=== PATIENT | male | born 1960 | race American Indian/Alaskan Native ===

== ENCOUNTER 2017-07-21 09:55 | Emergency (ER) | payer MEDICAID ==
[2017-07-21 10:04] VITALS: BP 140/101
[2017-07-21] MEDS ORDERED: NORVASC PO ONE ×2 (12:36→12:37)
[2017-07-21] MEDS ORDERED: CLARITIN PO ONE (12:37)
--- NOTE | 2017-07-21 12:39 | Emergency Department Report ---
HPI - General Chief Complaint: Back Pain/Injury Time Seen by Provider: 07/21/17 12:26 - HPI HPI: BACK PAIN SINCE 2010 ED Past Medical Hx - Past Medical History Previous Medical History?: Yes Hx Hypertension: Yes Additional medical history: back pain - Surgical History Past Surgical History?: No - Social History Smoking Status: Current Every Day Smoker Substance Use Type: Non Opiate Pain - Medications Home Medications: Home Medications Medication Instructions Recorded Confirmed Last Taken Type Hydrocodone Bit/Acetaminophen 1 tab PO Q6H PRN 03/12/13 03/12/13 Unknown History [Hydrocodon-Acetaminoph 7.5-650 mg] Hydrocodone Bit/Acetaminophen 1 each PO Q6H PRN #12 tablet 03/12/13 Unknown Rx [Lortab 7.5-500 Tablet] Cyclobenzaprine [Flexeril 10 MG 10 mg PO TID PRN #12 tablet 07/21/17 Unknown Rx TAB] Lisinopril/Hydrochlorothiazide 1 tab PO QDAY #30 tablet 07/21/17 Unknown Rx [Zestoretic 10-12.5 mg] ED Review of Systems ROS: Stated complaint: LOWER BACK PAIN Other details as noted in HPI Comment: All other systems reviewed and negative ENT: throat pain, congestion Physical Exam - Physical Exam Vital Signs: Vital Signs 07/21/17 10:01 Temperature 97.9 F Pulse Rate 75 Respiratory 18 Rate Blood Pressure 140/101 O2 Sat by Pulse 98 Oximetry ED Course Vital Signs 07/21/17 10:01 Temperature 97.9 F Pulse Rate 75 Respiratory 18 Rate Blood Pressure 140/101 O2 Sat by Pulse 98 Oximetry Critical care attestation.: If time is entered above; I have spent that time in minutes in the direct care of this critically ill patient, excluding procedure time. ED Disposition Clinical Impression: Low back strain Hypertension Qualifiers: Hypertension type: essential hypertension Qualified Code(s): I10 - Essential ( primary) hypertension Clinical Impression: (Ruled Out): Upper respiratory infection, viral Disposition: - TO HOME OR SELFCARE Is pt being admited?: No Does the pt Need Aspirin: No Condition: Stable Instructions: Hypertension (ED) Prescriptions: Cyclobenzaprine [Flexeril 10 MG TAB] 10 mg PO TID PRN #12 tablet PRN Reason: Muscle Spasm Lisinopril/Hydrochlorothiazide [Zestoretic 10-12.5 mg] 1 tab PO QDAY #30 tablet Referrals: PRIMARY CARE, [Primary Care Provider] - 3-5 Days
== END 2017-07-21 13:18 | disposition home or self-care (01) ==
LOC: ED 09:55
DX: S39.012A Strain of muscle, fascia and tendon of lower back, initial encounter (principal); I10 Essential (primary) hypertension; F17.200 Nicotine dependence, unspecified, uncomplicated; X58.XXXA Exposure to other specified factors, initial encounter; Y93.89 Activity, other specified; Y92.89 Other specified places as the place of occurrence of the external cause; Y99.8 Other external cause status
CPT/HCPCS: 99282

== ENCOUNTER 2018-02-26 08:48 | Emergency (ER) | payer OTHER, MEDICAID ==
[2018-02-26] MEDS ORDERED: ULTRAM PO ONE (09:31)
[2018-02-26] MEDS ORDERED: FLEXERIL PO ONE (09:31)
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
--- NOTE | 2018-02-26 10:53 | XRay Report ---
FINAL REPORT EXAM: XR SPINE CERVICAL 2-3V HISTORY: PAIN COMPARISON: None. TECHNIQUE: Three views of the cervical spine FINDINGS: There is no acute fracture or dislocation. The vertebral body heights are maintained. There is mild diffuse intervertebral disc space narrowing, most prominent at C5-C6, C6-C7, and C7-T1 with anterior and uncovertebral osteophyte formation. The posterior elements are intact. The paravertebral soft tissues are normal. IMPRESSION: Degenerative changes of the cervical spine without acute fracture or dislocation.
--- NOTE | 2018-02-26 10:54 | XRay Report ---
FINAL REPORT EXAM: XR SPINE THORACOLUMBAR 2V HISTORY: PAIN COMPARISON: None. TECHNIQUE: Two views of the thoracolumbar junction FINDINGS: There is normal alignment without acute fracture or dislocation. The vertebral body heights are maintained. There is mild diffuse intervertebral disc space narrowing. The paravertebral soft tissues are normal. IMPRESSION: Mild degenerative changes of the thoracolumbar junction without acute fracture or dislocation.
[2018-02-26 11:05] VITALS: BP 152/72
== END 2018-02-26 11:03 | disposition home or self-care (01) ==
LOC: ED 08:48
DX: S16.1XXA Strain of muscle, fascia and tendon at neck level, initial encounter (principal); M54.5 Low back pain; I10 Essential (primary) hypertension; F17.200 Nicotine dependence, unspecified, uncomplicated; V49.9XXA Car occupant (driver) (passenger) injured in unspecified traffic accident, initial encounter; Y93.89 Activity, other specified; Y99.8 Other external cause status; Y92.410 Unspecified street and highway as the place of occurrence of the external cause
CPT/HCPCS: 72040; 72080; 99283

== ENCOUNTER 2018-11-16 18:18 | Emergency (ER) | payer MEDICAID, OTHER ==
--- NOTE | 2018-11-16 18:33 | Emergency Department Report ---
Blank Doc - Documentation Documentation: This is a 58-year-old male that presents with abdominal pain, body aches, chil ls, subjective fever, with n/v. This initial assessment/diagnostic orders/clinical plan/treatment(s) is/are subject to change based on patient's health status, clinical progression and re- assessment by fellow clinical providers in the ED. Further treatment and workup at subsequent clinical providers discretion. Patient/guardians urged not to elope from the ED as their condition may be serious if not clinically assessed and managed. Initial orders include: 1- Patient sent to [facility] for further evaluation and treatment 2- labs 3- UA
[2018-11-16 19:17] LABS: Basophils # (Auto) 0.1 K/mm3 (0.0-0.1); Eosinophils % (Auto) 0.3 % (0.0-4.3); Hemoglobin 15.6 gm/dl (11.8-15.2); Lymphocytes # (Auto) 3.6 K/mm3 (1.2-5.4); Lymphocytes % (Auto) 30.1 % (13.4-35.0); Mean Corpuscular HGB Conc 33 % (32-34); Mean Corpuscular Volume 95 fl (84-94); Monocytes # (Auto) 0.9 K/mm3 (0.0-0.8); Monocytes % (Auto) 7.8 % (0.0-7.3); Platelet Count 264 K/mm3 (140-440); Red Blood Count 4.96 M/mm3 (3.65-5.03); Red Cell Distribution Width 13.6 % (13.2-15.2)
[2018-11-16 19:40] LABS: Alanine Aminotransferase 15 units/L (7-56); Albumin 4.2 g/dL (3.9-5); BUN/Creatinine Ratio 11; Blood Urea Nitrogen 11 mg/dL (9-20); Calcium 9.7 mg/dL (8.4-10.2); Hemolysis Index 21
[2018-11-16 20:24] VITALS: BP 135/80
[2018-11-16] MEDS ORDERED: IBUPROFEN PO STA (21:39)
[2018-11-16] MEDS ORDERED: ZOFRAN ODT PO STA (21:39)
--- NOTE | 2018-11-16 22:26 | XRay Report ---
PROCEDURE: XR CHEST ROUTINE 2V TECHNIQUE: PA and lateral chest radiographs were obtained. HISTORY: cough COMPARISONS: None. FINDINGS: Heart: Normal. Mediastinum/Vessels: Normal. Lungs/Pleural space: Normal. Bony thorax: No acute osseous abnormality. IMPRESSION: No acute cardiopulmonary process seen.. This document is electronically signed by Felecia Louie MD., November 16 2018 10:24:39 PM ET
--- NOTE | 2018-11-16 23:30 | Emergency Department Report ---
- General Chief Complaint: Fever Stated Complaint: FEVER/BODY PAIN Time Seen by Provider: 11/16/18 18:31 Source: patient Mode of arrival: Ambulatory Limitations: No Limitations - History of Present Illness MD Complaint: fever, cough, rhinorrhea, nasal congestion, other (coryza and my algia) -: days(s) (3) Severity: mild Quality: dull Consistency: constant Improves With: nothing Worsens With: nothing Associated Symptoms: nausea, vomiting. denies: diarrhea, dysuria, rash, confusion, epistaxis - Related Data Previous Rx's Medication Instructions Recorded Last Taken Type Cyclobenzaprine [Flexeril] 10 mg PO TID PRN #10 tablet 02/26/18 Unknown Rx Lisinopril/Hydrochlorothiazide 1 tab PO QDAY #30 tablet 02/26/18 Unknown Rx [Zestoretic 10-12.5 mg] Naproxen Sodium [Aleve TAB] 220 mg PO Q8H PRN #12 tablet 02/26/18 Unknown Rx Ketorolac [Toradol] 10 mg PO Q6H PRN #15 tablet 11/16/18 Unknown Rx Ondansetron [Zofran ODT TAB] 8 mg PO Q12HR #14 tab.rapdis 11/16/18 Unknown Rx Allergies Allergy/AdvReac Type Severity Reaction Status Date / Time No Known Allergies Allergy Verified 11/16/18 18:19 ED Review of Systems ROS: Stated complaint: FEVER/BODY PAIN Other details as noted in HPI Constitutional: denies: chills, fever Eyes: denies: eye pain, eye discharge, vision change ENT: denies: ear pain, throat pain Respiratory: denies: cough, shortness of breath, wheezing Cardiovascular: denies: chest pain, palpitations Endocrine: no symptoms reported Gastrointestinal: denies: abdominal pain, nausea, diarrhea Genitourinary: denies: urgency, dysuria Musculoskeletal: denies: back pain, joint swelling, arthralgia Skin: denies: rash, lesions Neurological: denies: headache, weakness, paresthesias Psychiatric: denies: anxiety, depression Hematological/Lymphatic: denies: easy bleeding, easy bruising ED Past Medical Hx - Past Medical History Hx Hypertension: Yes Hx CVA: No Additional medical history: back pain - Surgical History Past Surgical History?: No - Social History Smoking Status: Current Every Day Smoker Substance Use Type: None - Medications Home Medications: Home Medications Medication Instructions Recorded Confirmed Last Taken Type Cyclobenzaprine [Flexeril] 10 mg PO TID PRN #10 tablet 02/26/18 Unknown Rx Lisinopril/Hydrochlorothiazide 1 tab PO QDAY #30 tablet 02/26/18 Unknown Rx [Zestoretic 10-12.5 mg] Naproxen Sodium [Aleve TAB] 220 mg PO Q8H PRN #12 tablet 02/26/18 Unknown Rx Ketorolac [Toradol] 10 mg PO Q6H PRN #15 tablet 11/16/18 Unknown Rx Ondansetron [Zofran ODT TAB] 8 mg PO Q12HR #14 tab.rapdis 11/16/18 Unknown Rx ED Physical Exam - General Limitations: No Limitations General appearance: alert, other (ill but nontoxic) - Head Head exam: Present: atraumatic, normocephalic - Eye Eye exam: Present: normal appearance, PERRL, EOMI Pupils: Present: normal accommodation - ENT ENT exam: Present: normal exam, mucous membranes moist, other (nasal congestion bilaterally. Clear nasal discharge) - Neck Neck exam: Present: normal inspection, full ROM - Respiratory Respiratory exam: Present: normal lung sounds bilaterally, rhonchi. Absent: respiratory distress - Cardiovascular Cardiovascular Exam: Present: regular rate, normal rhythm. Absent: systolic murmur, diastolic murmur, rubs, gallop - GI/Abdominal GI/Abdominal exam: Present: soft, normal bowel sounds - Rectal Rectal exam: Present: deferred - Extremities Exam Extremities exam: Present: normal inspection - Back Exam Back exam: Present: normal inspection - Neurological Exam Neurological exam: Present: alert, oriented X3 - Psychiatric Psychiatric exam: Present: normal affect, normal mood - Skin Skin exam: Present: warm, dry, intact, normal color. Absent: rash ED Course Vital Signs 11/16/18 11/16/18 18:32 20:23 Temperature 98.3 F 99.1 F Pulse Rate 90 63 Respiratory 20 20 Rate Blood Pressure 148/108 Blood Pressure 135/80 [Right] O2 Sat by Pulse 99 99 Oximetry ED Medical Decision Making - Lab Data Result diagrams: 11/16/18 18:37 11/16/18 18:37 - Medical Decision Making 58-year-old [place] male, nasal congestion, cough/no chest pain or abdominal pain. Mildly elevated white count. No dysuria, sudden onset of symptoms appears to be more viral in nature. Chest x-ray is normal. Treat his symptoms and have her reevaluated in 24-48 hours. He is tolerating by mouth with no complications Critical care attestation.: If time is entered above; I have spent that time in minutes in the direct care of this critically ill patient, excluding procedure time. ED Disposition Clinical Impression: Viral syndrome Disposition: DC- TO HOME OR SELFCARE Is pt being admited?: No Does the pt Need Aspirin: No Condition: Stable Instructions: Viral Syndrome (ED) Referrals: PRIMARY CARE [Primary Care Provider] - 3-5 Days [facility] [Provider Group] - 3-5 Days
[2018-11-16 23:53] LABS: Amorphous Crystals,Urine Few; Bilirubin,Urine SM (Negative); Blood,Urine NEG (Negative); Color,Urine Amber (Yellow); Mucus,Urine 2+ /HPF
[2018-11-17 02:19] LABS: Ictotest,Urine Negative (Negative)
== END 2018-11-16 23:45 | disposition home or self-care (01) ==
LOC: ED 18:18
DX: B34.9 Viral infection, unspecified (principal); R09.81 Nasal congestion; M79.10 Myalgia, unspecified site; I10 Essential (primary) hypertension; Z79.899 Other long term (current) drug therapy; F17.200 Nicotine dependence, unspecified, uncomplicated
CPT/HCPCS: 36415; 71046; 80053; 81001; 83690; 85025; 99284; Q0162

== ENCOUNTER 2018-11-17 15:03 | Emergency (ER) | payer MEDICAID ==
[2018-11-17 16:24] LABS: Basophils # (Auto) 0.2 K/mm3 (0.0-0.1); Basophils % (Auto) 1.6 % (0.0-1.8); Eosinophils % (Auto) 0.3 % (0.0-4.3); Hematocrit 46.1 % (35.5-45.6); Hemoglobin 15.8 gm/dl (11.8-15.2); Lymphocytes # (Auto) 3.2 K/mm3 (1.2-5.4); Lymphocytes % (Auto) 26.2 % (13.4-35.0); Mean Corpuscular HGB Conc 34 % (32-34); Mean Corpuscular Volume 95 fl (84-94); Monocytes % (Auto) 8.3 % (0.0-7.3); Platelet Count 274 K/mm3 (140-440); Red Blood Count 4.84 M/mm3 (3.65-5.03); Red Cell Distribution Width 13.8 % (13.2-15.2)
[2018-11-17 17:03] LABS: Alanine Aminotransferase 15 units/L (7-56); Albumin 4.1 g/dL (3.9-5); BUN/Creatinine Ratio 8; Blood Urea Nitrogen 10 mg/dL (9-20); Calcium 9.2 mg/dL (8.4-10.2); Hemolysis Index 30
[2018-11-17] MEDS ORDERED: NACL 0.9% 1000 ML 1,000 ML IV ONE (18:26)
--- NOTE | 2018-11-17 19:48 | Emergency Department Report ---
ED General Adult HPI - General Chief complaint: Nausea/Vomiting/Diarrhea Stated complaint: V/N Time Seen by Provider: 11/17/18 15:44 Source: patient Mode of arrival: Ambulatory Limitations: No Limitations - History of Present Illness Initial comments: 58-year-old male with a history of hypertension and herniated disks presents with a complaint of nausea and vomiting for over a week. Patient states that he was seen yesterday and was prescribed) didn't appear patient states he has continued to have epigastric discomfort and feels as if he cannot eat. Patient denies any fever. Patient denies any hematemesis or hematochezia. Patient states currently his abdominal pain has resolved. Severity scale (0 -10): 1 - Related Data Previous Rx's Medication Instructions Recorded Last Taken Type Cyclobenzaprine [Flexeril] 10 mg PO TID PRN #10 tablet 02/26/18 Unknown Rx Lisinopril/Hydrochlorothiazide 1 tab PO QDAY #30 tablet 02/26/18 Unknown Rx [Zestoretic 10-12.5 mg] Naproxen Sodium [Aleve TAB] 220 mg PO Q8H PRN #12 tablet 02/26/18 Unknown Rx Ketorolac [Toradol] 10 mg PO Q6H PRN #15 tablet 11/16/18 Unknown Rx Ondansetron [Zofran ODT TAB] 8 mg PO Q12HR #14 tab.rapdis 11/16/18 Unknown Rx Famotidine [Pepcid] 20 mg PO BID #60 tablet 11/17/18 Unknown Rx Allergies Allergy/AdvReac Type Severity Reaction Status Date / Time No Known Allergies Allergy Verified 11/17/18 15:44 ED Review of Systems ROS: Stated complaint: V/N Other details as noted in HPI Constitutional: denies: chills, fever Eyes: denies: eye pain, eye discharge, vision change ENT: denies: ear pain, throat pain Respiratory: denies: cough, shortness of breath, wheezing Cardiovascular: denies: chest pain, palpitations Endocrine: no symptoms reported Gastrointestinal: nausea, vomiting. denies: abdominal pain, diarrhea Genitourinary: denies: urgency, dysuria Musculoskeletal: denies: back pain, joint swelling, arthralgia Skin: denies: rash, lesions Neurological: denies: headache, weakness, paresthesias Psychiatric: denies: anxiety, depression Hematological/Lymphatic: denies: easy bleeding, easy bruising ED Past Medical Hx - Past Medical History Hx Hypertension: Yes Hx CVA: No Additional medical history: back pain - Social History Smoking Status: Current Every Day Smoker - Medications Home Medications: Home Medications Medication Instructions Recorded Confirmed Last Taken Type Cyclobenzaprine [Flexeril] 10 mg PO TID PRN #10 tablet 02/26/18 Unknown Rx Lisinopril/Hydrochlorothiazide 1 tab PO QDAY #30 tablet 02/26/18 Unknown Rx [Zestoretic 10-12.5 mg] Naproxen Sodium [Aleve TAB] 220 mg PO Q8H PRN #12 tablet 02/26/18 Unknown Rx Ketorolac [Toradol] 10 mg PO Q6H PRN #15 tablet 11/16/18 Unknown Rx Ondansetron [Zofran ODT TAB] 8 mg PO Q12HR #14 tab.rapdis 11/16/18 Unknown Rx Famotidine [Pepcid] 20 mg PO BID #60 tablet 11/17/18 Unknown Rx ED Physical Exam - General Limitations: No Limitations General appearance: alert, in no apparent distress, other (comfortable) - Head Head exam: Present: atraumatic, normocephalic - Eye Eye exam: Present: normal appearance - ENT ENT exam: Present: mucous membranes moist - Neck Neck exam: Present: normal inspection - Respiratory Respiratory exam: Present: normal lung sounds bilaterally. Absent: respiratory distress - Cardiovascular Cardiovascular Exam: Present: regular rate, normal rhythm. Absent: systolic murmur, diastolic murmur, rubs, gallop - GI/Abdominal GI/Abdominal exam: Present: soft, normal bowel sounds. Absent: distended, tenderness - Rectal Rectal exam: Present: deferred - Extremities Exam Extremities exam: Present: normal inspection - Back Exam Back exam: Present: normal inspection - Neurological Exam Neurological exam: Present: alert, oriented X3 - Psychiatric Psychiatric exam: Present: normal affect, normal mood - Skin Skin exam: Present: warm, dry, intact, normal color. Absent: rash ED Course Vital Signs 11/17/18 11/17/18 11/17/18 15:44 15:47 18:50 Temperature 99.8 F H Pulse Rate 76 52 L Respiratory 18 19 Rate Blood Pressure Blood Pressure 141/114 [Left] O2 Sat by Pulse 99 Oximetry 11/17/18 11/17/18 11/17/18 18:57 19:01 19:15 Temperature 98.5 F Pulse Rate 61 71 73 Respiratory 18 20 18 Rate Blood Pressure 134/74 134/74 Blood Pressure 138/82 [Left] O2 Sat by Pulse 100 Oximetry 11/17/18 11/17/18 11/17/18 19:25 19:31 19:45 Temperature Pulse Rate 77 72 Respiratory 18 20 21 Rate Blood Pressure 134/74 134/74 Blood Pressure [Left] O2 Sat by Pulse Oximetry 11/17/18 11/17/18 11/17/18 20:00 20:15 20:31 Temperature Pulse Rate 73 84 59 L Respiratory 18 21 13 Rate Blood Pressure 150/105 150/105 150/105 Blood Pressure [Left] O2 Sat by Pulse Oximetry 11/17/18 11/17/18 11/17/18 20:45 21:01 21:15 Temperature Pulse Rate 66 78 65 Respiratory 13 14 11 L Rate Blood Pressure 150/105 150/105 150/105 Blood Pressure [Left] O2 Sat by Pulse Oximetry 11/17/18 21:31 Temperature Pulse Rate 69 Respiratory 21 Rate Blood Pressure 150/105 Blood Pressure [Left] O2 Sat by Pulse Oximetry ED Medical Decision Making - Lab Data Result diagrams: 11/17/18 16:08 11/17/18 16:08 - Medical Decision Making Patient received GI cocktail states that he feels improved. Patient be discharged to follow up with PCP as an outpatient. - Differential Diagnosis Gastritis; Pancreatitis; electrolyte abnormality; anemia Critical care attestation.: If time is entered above; I have spent that time in minutes in the direct care of this critically ill patient, excluding procedure time. ED Disposition Clinical Impression: Gastritis and duodenitis Disposition: - TO HOME OR SELFCARE Is pt being admited?: No Does the pt Need Aspirin: No Condition: Stable Instructions: Gastritis (ED) Prescriptions: Famotidine [Pepcid] 20 mg PO BID #60 tablet Referrals: ANABEL OVALLE MD [Primary Care Provider] - 3-5 Days Time of Disposition: 22:00 Print Language: INDIAN
[2018-11-17] MEDS ORDERED: ALUM-MAG HYDROX-SIMETH 200-200-20MG/5ML PO ONE (20:21)
[2018-11-17] MEDS ORDERED: LIDOCAINE VISCOUS 2% PO ONE (20:21)
[2018-11-17 21:41] VITALS: BP 150/105
== END 2018-11-17 22:10 | disposition home or self-care (01) ==
LOC: ED 15:03
DX: K29.70 Gastritis, unspecified, without bleeding (principal); K29.80 Duodenitis without bleeding; I10 Essential (primary) hypertension; F17.200 Nicotine dependence, unspecified, uncomplicated
CPT/HCPCS: 36415; 80053; 83690; 85025; 96360; 99283; J7030

== ENCOUNTER 2019-02-13 11:22 | Emergency (ER) | payer MEDICAID ==
--- NOTE | 2019-02-13 11:41 | Event Note ---
ED Screening Note ED Screening Note: pt presents with N/V/D that began three days ago right sided CP and right sided upper abd pain +chills PMHx HTN no allergies to meds rarely drinks non smoker no drug use This initial assessment/diagnostic orders/clinical plan/treatment(s) is/are subject to change based on patients health status, clinical progression and re- assessment by fellow clinical providers in the ED. Further treatment and workup at subsequent clinical providers discretion. Patient/guardian urged not to elope from the ED as their condition may be serious if not clinically assessed and managed. Initial orders include: CP protocol, abd protocol
[2019-02-13] MEDS ORDERED: ZOFRAN ODT PO ONE (11:42)
[2019-02-13] MEDS ORDERED: ZOFRAN ODT ONE (11:45)
[2019-02-13 12:01] LABS: Basophils # (Auto) 0.1 K/mm3 (0.0-0.1); Basophils % (Auto) 1.1 % (0.0-1.8); Eosinophils % (Auto) 0.4 % (0.0-4.3); Hematocrit 49.1 % (35.5-45.6); Hemoglobin 16.8 gm/dl (11.8-15.2); Lymphocytes # (Auto) 3.6 K/mm3 (1.2-5.4); Lymphocytes % (Auto) 29.5 % (13.4-35.0); Mean Corpuscular HGB Conc 34 % (32-34); Mean Corpuscular Volume 93 fl (84-94); Monocytes # (Auto) 1.1 K/mm3 (0.0-0.8); Platelet Count 283 K/mm3 (140-440); Red Blood Count 5.26 M/mm3 (3.65-5.03); Red Cell Distribution Width 14.2 % (13.2-15.2)
--- NOTE | 2019-02-13 12:16 | XRay Report ---
CHEST 2 VIEWS INDICATION: Right-sided chest pain for 3 days. COMPARISON: FINDINGS: Support devices: None. Heart: Within normal limits. Lungs/pleura: The lungs appear mildly hyperinflated, correlate for history of smoking. No evidence fo r infiltrate or pleural fluid. No pneumothorax. Additional findings: Scoliosis IMPRESSION: Mild hyperinflation. No acute process. Signer Name: Jean Nichols Jr, MD Signed: 02/13/2019 12:12 PM Workstation Name: [id number]
[2019-02-13 12:27] LABS: Alanine Aminotransferase 10 units/L (7-56); Albumin 4.4 g/dL (3.9-5); BUN/Creatinine Ratio 14; Blood Urea Nitrogen 15 mg/dL (9-20); Calcium 9.6 mg/dL (8.4-10.2); Hemolysis Index 21
[2019-02-13 14:47] VITALS: BP 147/108
== END 2019-02-13 19:00 | disposition left against medical advice (07) ==
LOC: ED 11:22
DX: R11.10 Vomiting, unspecified (principal); Z53.21 Procedure and treatment not carried out due to patient leaving prior to being seen by health care provider
CPT/HCPCS: 36415; 71046; 80053; 83690; 84484; 85025; 93005; 93010; Q0162

== ENCOUNTER 2019-02-14 08:52 | Emergency (ER) | payer MEDICAID ==
[2019-02-14] MEDS ORDERED: ZOFRAN IV ONE (10:47)
[2019-02-14] MEDS ORDERED: PEPCID IV ONE (10:47)
[2019-02-14] MEDS ORDERED: BENTYL IM ONE (10:48)
[2019-02-14] MEDS ORDERED: NACL 0.9% 500 ML 500 ML IV ONE (10:48)
[2019-02-14] MEDS ORDERED: CARAFATE PO ONE (10:48)
[2019-02-14] MEDS ORDERED: TYLENOL PO ONE (10:48)
--- NOTE | 2019-02-14 10:50 | Emergency Department Report ---
ED General Adult HPI - General Chief complaint: Chest Pain Stated complaint: CHEST PAIN/STOMACH PAIN Time Seen by Provider: 02/14/19 10:09 Source: patient, RN notes reviewed, old records reviewed Mode of arrival: Ambulatory Limitations: No Limitations - History of Present Illness Initial comments: This is a 58-year-old gentleman. This patient is not known to this provider previously. He does not have a primary care doctor. Past medical history inc ludes tobacco consumption and possible hypertension. Patient presents to the ER today with a complaint of epigastric and right upper quadrant pain, nausea, vomiting, cough, chest wall pain with coughing, intermittent lower abdominal pain, and intermittent urinary hesitancy. Positive chills, no fever. Symptoms intermittent over the past 3 days, and getting worse. Symptoms do not really have exacerbating or relieving factors, with the exception of occasional urinating, and occasionally tending to be or drink. Patient was seen in this department yesterday, however, left because he felt the wait was too long. However, he presents again, because his symptoms are apparently getting worse. -: Gradual Location: chest, abdomen Radiation: other (lower abdominal region up to chest) Severity scale (0 -10): 0 Consistency: other Improves with: other - Related Data Previous Rx's Medication Instructions Recorded Last Taken Type Lisinopril/Hydrochlorothiazide 1 tab PO QDAY #30 tablet 02/26/18 Unknown Rx [Zestoretic 10-12.5 mg] Ondansetron [Zofran ODT TAB] 8 mg PO Q12HR #14 tab.rapdis 11/16/18 Unknown Rx Famotidine [Pepcid] 20 mg PO BID #60 tablet 11/17/18 Unknown Rx Albuterol Sulfate [Proair 90 mcg IH Q4HR PRN #2 aer.pow.ba 02/14/19 Unknown Rx Respiclick] Aspirin [Aspirin BABY CHEW TAB] 81 mg PO QDAY #30 tab.chew 02/14/19 Unknown Rx Famotidine [Pepcid] 20 mg PO BID #10 tablet 02/14/19 Unknown Rx Metoclopramide [Reglan] 10 mg PO QID PRN #30 tablet 02/14/19 Unknown Rx levoFLOXacin [Levaquin] 750 mg PO QDAY #10 tablet 02/14/19 Unknown Rx Allergies Allergy/AdvReac Type Severity Reaction Status Date / Time No Known Allergies Allergy Verified 11/17/18 15:44 ED Review of Systems ROS: Stated complaint: CHEST PAIN/STOMACH PAIN Other details as noted in HPI Constitutional: chills, malaise, weakness Eyes: denies: eye discharge ENT: denies: congestion Respiratory: cough Cardiovascular: chest pain Gastrointestinal: abdominal pain, nausea. denies: diarrhea Genitourinary: as per HPI, other. denies: urgency, dysuria, frequency, hematuria, testicular pain Musculoskeletal: denies: back pain Skin: denies: lesions Neurological: weakness ED Past Medical Hx - Past Medical History Hx Hypertension: Yes Hx CVA: No Additional medical history: back pain - Surgical History Past Surgical History?: No - Social History Smoking Status: Current Every Day Smoker - Medications Home Medications: Home Medications Medication Instructions Recorded Confirmed Last Taken Type Lisinopril/Hydrochlorothiazide 1 tab PO QDAY #30 tablet 02/26/18 Unknown Rx [Zestoretic 10-12.5 mg] Ondansetron [Zofran ODT TAB] 8 mg PO Q12HR #14 tab.rapdis 11/16/18 Unknown Rx Famotidine [Pepcid] 20 mg PO BID #60 tablet 11/17/18 Unknown Rx Albuterol Sulfate [Proair 90 mcg IH Q4HR PRN #2 aer.pow.ba 02/14/19 Unknown Rx Respiclick] Aspirin [Aspirin BABY CHEW TAB] 81 mg PO QDAY #30 tab.chew 02/14/19 Unknown Rx Famotidine [Pepcid] 20 mg PO BID #10 tablet 02/14/19 Unknown Rx Metoclopramide [Reglan] 10 mg PO QID PRN #30 tablet 02/14/19 Unknown Rx levoFLOXacin [Levaquin] 750 mg PO QDAY #10 tablet 02/14/19 Unknown Rx ED Physical Exam - General Limitations: No Limitations, Other (during history and physical, chaperoned by nurse Myrna Giron) General appearance: alert, in no apparent distress - Head Head exam: Present: atraumatic, normocephalic - Eye Eye exam: Present: normal appearance, EOMI. Absent: nystagmus - ENT ENT exam: Present: normal exam, normal orophraynx, mucous membranes moist, normal external ear exam - Neck Neck exam: Present: normal inspection, full ROM. Absent: tenderness, meningismus - Respiratory Respiratory exam: Present: decreased breath sounds. Absent: respiratory distr ess - Cardiovascular Cardiovascular Exam: Present: regular rate, normal rhythm, normal heart sounds. Absent: bradycardia, tachycardia, irregular rhythm, systolic murmur, diastolic murmur, rubs, gallop - GI/Abdominal GI/Abdominal exam: Present: soft. Absent: distended, tenderness, guarding, rebound, rigid, pulsatile mass - Rectal Rectal exam: Present: deferred - exam: Present: normal inspection, other (there is no testicular tenderness. There is normal testicular lie bilaterally. There is normal cremasteric reflex bilaterally.) External exam: Present: normal external exam, other (chaperoned by nurse Juaquin castillo) - Extremities Exam Extremities exam: Present: normal inspection, full ROM, other (2+ pulses noted in the bilateral upper, lower extremities. Compartments soft. No long bony tenderness. The pelvis is stable.). Absent: pedal edema, joint swelling, calf tenderness - Back Exam Back exam: Present: normal inspection, full ROM. Absent: tenderness, CVA tenderness (R), CVA tenderness (L), paraspinal tenderness, vertebral tenderness - Neurological Exam Neurological exam: Present: alert, other (Extraocular movements intact. Tongue midline. No facial droop. Facial sensation intact to light touch in the V1, V2, V3 distribution bilaterally. 5 and 5 strength in 4 extremities.. Sensation is intact to light touch in 4 extremities.). Absent: motor sensory deficit - Psychiatric Psychiatric exam: Present: normal mood - Skin Skin exam: Present: warm, dry, intact, normal color. Absent: rash ED Course Vital Signs 02/14/19 02/14/19 02/14/19 10:15 10:21 14:25 Temperature 99.1 F Pulse Rate 73 65 Respiratory 16 16 16 Rate Blood Pressure 154/66 145/85 [Left] O2 Sat by Pulse 97 99 96 Oximetry - Reevaluation(s) Reevaluation #1: 02/14/19 11:34 Differential diagnosis, including not limited to: Pneumonia, cholecystitis, complex urinary tract infection, pulmonary embolism, inflammatory bowel disease, intra-abdominal infection, acute coronary syndrome Assessment and plan: 58-year-old gentleman with a complaint of right upper quadrant pain, chills, abdominal pain, urinary hasn't C. Denies testicular pain, rectal pain, and he denies dyschezia, or rectal pain. Has low-grade t emperature, found to have leukocytosis today of 14,000, up from 12,000 yesterday. His physical exam is otherwise unremarkable. Recently had a chest x-ray which was unremarkable. Given low-grade temperature, worsening leukocytosis, multiple symptoms, we will obtain CT scan of the chest to evaluate for pneumonia not visualized on x-ray, and pulmonary embolism. CT scan of the abdomen and pelvis will be obtained to evaluate abdominal anatomy. We will treat his symptoms, I'm we will reassess. Of note, EKG today is abnormal but unchanged from prior. 02/14/19 16:02 Reevaluation #2: 02/14/19 16:00 Patient reassessed multiple times all here in the department. Vital signs unremarkable. No active vomiting. He is now currently sleeping comfortably and his stretcher, and in no acute distress. Troponin negative 4. CT scan of the chest negative for acute disease. CT scan of the abdomen and pelvis grossly negative, although limited somewhat by motion artifact. There was a question of possible early mild left-sided pyelonephritis. Urinalysis is reviewed and appreciated. EKG abnormal, patient will be referred to local outpatient cardiology as per protocol of this local institution. Abnormal EKG findings reviewed and appreciated, however, given overall clinical picture, do not feel that patient would benefit from admission to the hospital at this time, our local cardiology group can follow him up within the next 48 hours, and arrange close outpatient diagnostic testing. We will discharge him with pain medication, nausea medication Given his endorsement of obstructive urinary symptoms, low-grade temperature, leukocytosis, and CT scan findings, we'll initiate empiric coverage with antibiotics. 02/14/19 16:02 02/14/19 16:05 ED Medical Decision Making - Lab Data Result diagrams: 02/14/19 11:01 02/14/19 11:01 Vital Signs 02/14/19 02/14/19 10:15 10:21 Temperature 99.1 F Pulse Rate 73 Respiratory 16 16 Rate Blood Pressure 154/66 [Left] O2 Sat by Pulse 97 99 Oximetry Lab Results 02/14/19 02/14/19 02/14/19 Range/Units 11:01 11:01 11:01 WBC 14.2 H (4.5-11.0) K/mm3 RBC 5.22 H (3.65-5.03) M/mm3 Hgb 16.4 H (11.8-15.2) gm/dl Hct 49.1 H (35.5-45.6) % MCV 94 (84-94) fl MCH 31 (28-32) pg MCHC 33 (32-34) % RDW 13.9 (13.2-15.2) % Plt Count 271 (140-440) K/mm3 PT 14.3 (12.2-14.9) Sec. INR 1.14 H (0.87-1.13) D-Dimer 199.55 (0-234) ng/mlDDU Magnesium 2.10 (1.7-2.3) mg/dL Lipase 11 L (13-60) units/L - EKG Data -: EKG Interpreted by Ne EKG shows normal: sinus rhythm Rate: normal - EKG Data 02/14/19 11:37 EKG #1 shows a sinus rhythm, 74 bpm, normal axis, QTC is prolonged, poor R progression, atrial enlargement, left ventricular hypertrophy, T-wave inversions V4, V5 and V6, EKG is abnormal, the EKG is not consistent with ST elevation myocardial infarction. EKG #2 shows a bradycardic rhythm, 59 bpm, normal axis, QTC within normal limits, biphasic/new T-wave inversions V2, V3, EKG is abnormal, EKG appears to be different from prior EKG. - Radiology Data Radiology results: pending, report reviewed, image reviewed Referring Physician: JOAQUIN RAMIREZ Patient Name: LAINE VELAZQUEZ Date of : 1960 Sex: Male Report Date: 2019-02-14 Report Status: Finalized [facility] [address] [place] [address] Cat Scan Report Signed Patient: LAINE VELAZQUEZ MR#: [id number] : 1960 Acct:[id number] Age/Sex: 58 / M ADM Date: 02/14/19 Loc: ED Attending Dr: Ordering Physician: JOAQUIN RAMIREZ MD Date of Service: 02/14/19 Procedure(s): CT angio chest Accession Number(s): [id number] cc: JOAQUIN RAMIREZ MD CTA CHEST WITH CONTRAST INDICATION : Chest pain, cough, fever, SIRS. TECHNIQUE: Axial imaging performed through the chest, with contrast bolus timing set to maximize opacification of the pulmonary arteries. Sagittal and coronal reformatted images. 3-plane MIP reformatted images were obtained. All CT scans at this location are performed using CT dose reduction for ALARA by means of automated exposure control. 100 mL of intravenous contrast administered. COMPARISON: Chest x-ray 02/13/2019 FINDINGS: The images are slightly limited by breathing motion artifact. Bolus: Contrast bolus timing is adequate. PTE: No filling defect is present to suggest PTE. Mediastinum: Heart and great vessels appear normal. No pathologic mediastinal adenopathy. Lungs: Lungs are clear. Bones: Degenerative changes in the spine with nothing acute. Upper abdomen: Limited imaging of the upper abdomen shows nothing acute. IMPRESSION: Negative for PTE. Clear lungs. Signer Name: Jean Nichols Jr, MD Signed: 02/14/2019 1:59 PM Workstation Name: [id number] Transcribed By: TTR Dictated By: JEAN NICHOLS JR, MD Electronically Authenticated By: JEAN NICHOLS JR, MD Signed Date/Time: 02/14/19 1350 Referring Physician: JOAQUIN RAMIREZ Patient Name: LAINE VELAZQUEZ Date of : 1960 Sex: Male Report Date: 2019-02-14 Report Status: [place] [address] Cat Scan Report Signed Patient: LAINE VELAZQUEZ MR#: [id number] : 1960 Acct:[id number] Age/Sex: 58 / M ADM Date: 02/14/19 Loc: ED Attending Dr: Ordering Physician: JOAQUIN RAMIREZ MD Date of Service: 02/14/19 Procedure(s): CT abdomen pelvis w con Accession Number(s): [id number] cc: JOAQUIN RAMIREZ MD CT ABDOMEN AND PELVIS WITH CONTRAST HISTORY: Right upper quadrant abdominal pain COMPARISON: None. TECHNIQUE: Axial CT images were obtained through the abdomen and pelvis after 100 cc of Omnipaque 300 intravenously. Sagittal and coronal reformatted images. All CT scans at this location are pe rformed using CT dose reduction for ALARA by means of automated exposure control. FINDINGS: CT ABDOMEN: Liver: Normal size and density. There are several tiny cysts scattered throughout the liver. No parenchymal disease or mass. Biliary: No significant abnormality. Spleen: No significant abnormality. Unenlarged. Pancreas: No significant abnormality. Adrenals: No significant abnormality. Kidneys: Multiple bilateral renal cysts are identified. There is moderate motion artifact at the level of the knees but there is suggestion of subtle perfusion defects in the left kidney which could represent p yelonephritis. Lymphatics: No lymphadenopathy. Vasculature: No significant abnormality. Bowel/Peritoneum: No significant abnormality. No free air. No free fluid. The appendix is not confidently identified. CT PELVIS: : No significant abnormality. Osseous Structures: No significant abnormality. Additional Findings: None IMPRESSION: Slightly limited exam by motion artifact. Question early left pyelonephritis. Bilateral renal cysts. Scattered tiny liver cysts. Signer Name: Jean Nichols Jr, MD Signed: 02/14/2019 2:02 PM Workstation Name: [id number] Transcribed By: TTR Dictated By: JEAN NICHLOS JR, MD Electronically Authenticated By: JEAN NICHOLS JR, MD Signed Date/Time: 02/14/19 1402 Critical care attestation.: If time is entered above; I have spent that time in minutes in the direct care of this critically ill patient, excluding procedure time. ED Disposition Clinical Impression: Urinary hesitancy, Right sided abdominal pain, Abnormal EKG Disposition: DC-01 TO HOME OR SELFCARE Is pt being admited?: No Does the pt Need Aspirin: No Condition: Stable Additional Instructions: Recommend patient consumed 4-6 cups of water per day for the next 5-7 days. Cultures were sent today, and results will be available in the next 3-5 days. Please have primary care doctor contact medical records department to obtain culture results. Advance diet as tolerated, take the pain medication, nausea medication as needed/directed, aspirin as directed, and antibiotics as directed. Patient's EKG today was found to be abnormal, and he'll need to follow up with an outpatient lead technical architect within the next 3 days. For the patient's convenience, his contact information was transmitted to our local cardiology practice, [facility] cardiology, and they should contact the patient with a close outpatient follow-up appointment. However, recommend patient call them first thing in the morning, to follow-up on this, and confirm and arrange close outpatient follow-up. Avoid alcohol consumption, and avoid consumption of Motrin, ibuprofen, Naprosyn, Aleve, heavy spicy foods. Recommend follow-up with a primary care doctor or repeat checkup/evaluation for right-sided abdominal pain, history of nausea and vomiting within 5 days. Patient may follow up with the primary care doctor, some of which have been listed for his convenience on this before, or hematuria return to the emergency room for repeat checkup and evaluation. Please return to the emergency room right away with new, worsening or different symptoms, or symptoms not present on the initial emergency room evaluation. Do not take metformin medication for the next 2 days, if patient takes his medication. Referrals: ANABEL OVALLE MD [Primary Care Provider] - 3-5 Days [facility] [Provider Group] - 3-5 Days [facility] [Provider Group] - 3-5 Days
[2019-02-14 11:15] LABS: Hematocrit 49.1 % (35.5-45.6); Hemoglobin 16.4 gm/dl (11.8-15.2); Mean Corpuscular HGB Conc 33 % (32-34); Mean Corpuscular Volume 94 fl (84-94); Platelet Count 271 K/mm3 (140-440); Red Blood Count 5.22 M/mm3 (3.65-5.03); Red Cell Distribution Width 13.9 % (13.2-15.2)
[2019-02-14 11:23] LABS: INR 1.14 (0.87-1.13)
[2019-02-14] MEDS ORDERED: NITROSTAT SL PRN (11:36)
[2019-02-14 11:41] LABS: Alanine Aminotransferase 10 units/L (7-56); Albumin 4.2 g/dL (3.9-5); BUN/Creatinine Ratio 14; Blood Urea Nitrogen 15 mg/dL (9-20); Calcium 9.3 mg/dL (8.4-10.2); Hemolysis Index 25
[2019-02-14 13:17] LABS: Bilirubin,Urine NEG (Negative); Blood,Urine NEG (Negative); Mucus,Urine FEW /HPF
[2019-02-14 13:33] LABS: Color,Urine Yellow (Yellow)
--- NOTE | 2019-02-14 14:04 | Cat Scan Report ---
CTA CHEST WITH CONTRAST INDICATION : Chest pain, cough, fever, SIRS. TECHNIQUE: Axial imaging performed through the chest, with contrast bolus timing set to maximize opa cification of the pulmonary arteries. Sagittal and coronal reformatted images. 3-plane MIP reformatte d images were obtained. All CT scans at this location are performed using CT dose reduction for ALAR A by means of automated exposure control. 100 mL of intravenous contrast administered. COMPARISON: Chest x-ray 02/13/2019 FINDINGS: The images are slightly limited by breathing motion artifact. Bolus: Contrast bolus timing is adequate. PTE: No filling defect is present to suggest PTE. Mediastinum: Heart and great vessels appear normal. No pathologic mediastinal adenopathy. Lungs: Lungs are clear. Bones: Degenerative changes in the spine with nothing acute. Upper abdomen: Limited imaging of the upper abdomen shows nothing acute. IMPRESSION: Negative for PTE. Clear lungs. Signer Name: Jean Nichosl Jr, MD Signed: 02/14/2019 1:59 PM Workstation Name: [id number]
--- NOTE | 2019-02-14 14:06 | Cat Scan Report ---
CT ABDOMEN AND PELVIS WITH CONTRAST HISTORY: Right upper quadrant abdominal pain COMPARISON: None. TECHNIQUE: Axial CT images were obtained through the abdomen and pelvis after 100 cc of Omnipaque 300 intravenously. Sagittal and coronal reformatted images. All CT scans at this location are performed using CT dose reduction for ALARA by means of automated exposure control. FINDINGS: CT ABDOMEN: Liver: Normal size and density. There are several tiny cysts scattered throughout the liver. No paren chymal disease or mass. Biliary: No significant abnormality. Spleen: No significant abnormality. Unenlarged. Pancreas: No significant abnormality. Adrenals: No significant abnormality. Kidneys: Multiple bilateral renal cysts are identified. There is moderate motion artifact at the leve l of the knees but there is suggestion of subtle perfusion defects in the left kidney which could rep resent pyelonephritis. Lymphatics: No lymphadenopathy. Vasculature: No significant abnormality. Bowel/Peritoneum: No significant abnormality. No free air. No free fluid. The appendix is not confide ntly identified. CT PELVIS: : No significant abnormality. Osseous Structures: No significant abnormality. Additional Findings: None IMPRESSION: Slightly limited exam by motion artifact. Question early left pyelonephritis. Bilateral renal cysts. Scattered tiny liver cysts. Signer Name: Jean Nichols Jr, MD Signed: 02/14/2019 2:02 PM Workstation Name: [id number]
[2019-02-14] MEDS ORDERED: LEVAQUIN PO ONE (16:09)
[2019-02-14 17:03] VITALS: BP 163/99
== END 2019-02-14 17:20 | disposition home or self-care (01) ==
LOC: ED 08:52
DX: R39.11 Hesitancy of micturition (principal); R10.9 Unspecified abdominal pain; R94.31 Abnormal electrocardiogram [ECG] [EKG]; R11.2 Nausea with vomiting, unspecified; I10 Essential (primary) hypertension; M54.9 Dorsalgia, unspecified; F17.200 Nicotine dependence, unspecified, uncomplicated; Z79.82 Long term (current) use of aspirin; Z79.899 Other long term (current) drug therapy
CPT/HCPCS: 36415; 71275; 74177; 80053; 81001; 82550; 83690; 83735; 84484; 85027; 85379; 85610; 87086; 93005; 93010; 96361; 96372; 96374; 96375; 99285; J0500; J2405; J7040; Q9967

== ENCOUNTER 2019-05-09 16:44 | Emergency (ER) | payer MEDICAID ==
--- NOTE | 2019-05-09 17:50 | Event Note ---
ED Screening Note Date of service: 05/09/19 Time: 17:47 ED Screening Note: 58 y o male presents with abd pain with vomitting and coughing up x 3 days This initial assessment/diagnostic orders/clinical plan/treatment(s) is/are subject to change based on patients health status, clinical progression and re- assessment by fellow clinical providers in the ED. Further treatment and workup at subsequent clinical providers discretion. Patient/guardian urged not to elope from the ED as their condition may be serious if not clinically assessed and managed. Initial orders include: labs ua
[2019-05-09 18:25] LABS: Hematocrit 52.8 % (35.5-45.6); Hemoglobin 17.8 gm/dl (11.8-15.2); Mean Corpuscular HGB Conc 34 % (32-34); Mean Corpuscular Volume 93 fl (84-94); Platelet Count 232 K/mm3 (140-440); Red Blood Count 5.69 M/mm3 (3.65-5.03); Red Cell Distribution Width 13.9 % (13.2-15.2)
--- NOTE | 2019-05-09 18:38 | XRay Report ---
CHEST 2 VIEWS INDICATION / CLINICAL INFORMATION: Chest pain. COMPARISON: 02/13/2019. FINDINGS: SUPPORT DEVICES: None. HEART / MEDIASTINUM: The heart size and pulmonary vasculature are normal. There is mild aortic tortuo sity without aneurysm. LUNGS / PLEURA: No significant pulmonary or pleural abnormality. No pneumothorax. ADDITIONAL FINDINGS: No significant additional findings. IMPRESSION: No acute abnormality or significant change. Signer Name: Wale Garland MD Signed: 05/09/2019 6:33 PM Workstation Name: [id number]
[2019-05-09 18:48] LABS: Alanine Aminotransferase 22 units/L (7-56); Albumin 4.3 g/dL (3.9-5); BUN/Creatinine Ratio 14; Blood Urea Nitrogen 18 mg/dL (9-20); Calcium 9.4 mg/dL (8.4-10.2); Hemolysis Index 21
--- NOTE | 2019-05-09 20:40 | Emergency Department Report ---
- General Chief Complaint: Upper Respiratory Infection Stated Complaint: VOMITING/FEVER Time Seen by Provider: 05/09/19 20:32 Source: patient Mode of arrival: Ambulatory Limitations: No Limitations - History of Present Illness Initial Comments: Patient is 58 years old male with history of hypertension. Patient presented to the ER complaining of cough, runny nose, congestion and generalized body ache for the last 4 days. Patient also complaining of nausea vomiting. Patient de nied any chest pain or abdominal pain. No fever or chills. MD Complaint: fever, cough, rhinorrhea, nasal congestion -: days(s) (4) Severity: moderate Context: sick contacts - Related Data Previous Rx's Medication Instructions Recorded Last Taken Type Lisinopril/Hydrochlorothiazide 1 tab PO QDAY #30 tablet 02/26/18 Unknown Rx [Zestoretic 10-12.5 mg] Ondansetron [Zofran ODT TAB] 8 mg PO Q12HR #14 tab.rapdis 11/16/18 Unknown Rx Famotidine [Pepcid] 20 mg PO BID #60 tablet 11/17/18 Unknown Rx Albuterol Sulfate [Proair 90 mcg IH Q4HR PRN #2 aer.pow.ba 02/14/19 Unknown Rx Respiclick] Aspirin [Aspirin BABY CHEW TAB] 81 mg PO QDAY #30 tab.chew 02/14/19 Unknown Rx Famotidine [Pepcid] 20 mg PO BID #10 tablet 02/14/19 Unknown Rx Metoclopramide [Reglan] 10 mg PO QID PRN #30 tablet 02/14/19 Unknown Rx levoFLOXacin [Levaquin] 750 mg PO QDAY #10 tablet 02/14/19 Unknown Rx Allergies Allergy/AdvReac Type Severity Reaction Status Date / Time No Known Allergies Allergy Verified 11/17/18 15:44 ED Review of Systems ROS: Stated complaint: VOMITING/FEVER Other details as noted in HPI Comment: All other systems reviewed and negative Constitutional: denies: chills, fever Respiratory: cough. denies: orthopnea, shortness of breath, SOB with exertion, SOB at rest, wheezing Cardiovascular: denies: chest pain, palpitations Gastrointestinal: nausea, vomiting. denies: abdominal pain, diarrhea, constipation, hematemesis, melena, hematochezia Musculoskeletal: denies: back pain Neurological: denies: headache, weakness, numbness, paresthesias, confusion, abnormal gait ED Past Medical Hx - Past Medical History Previous Medical History?: Yes Hx Hypertension: Yes Hx CVA: No Additional medical history: back pain - Social History Smoking Status: Current Every Day Smoker - Medications Home Medications: Home Medications Medication Instructions Recorded Confirmed Last Taken Type Lisinopril/Hydrochlorothiazide 1 tab PO QDAY #30 tablet 02/26/18 Unknown Rx [Zestoretic 10-12.5 mg] Ondansetron [Zofran ODT TAB] 8 mg PO Q12HR #14 tab.rapdis 11/16/18 Unknown Rx Famotidine [Pepcid] 20 mg PO BID #60 tablet 11/17/18 Unknown Rx Albuterol Sulfate [Proair 90 mcg IH Q4HR PRN #2 aer.pow.ba 02/14/19 Unknown Rx Respiclick] Aspirin [Aspirin BABY CHEW TAB] 81 mg PO QDAY #30 tab.chew 02/14/19 Unknown Rx Famotidine [Pepcid] 20 mg PO BID #10 tablet 02/14/19 Unknown Rx Metoclopramide [Reglan] 10 mg PO QID PRN #30 tablet 02/14/19 Unknown Rx levoFLOXacin [Levaquin] 750 mg PO QDAY #10 tablet 02/14/19 Unknown Rx ED Physical Exam - General Limitations: No Limitations General appearance: alert, in no apparent distress - Head Head exam: Present: atraumatic, normocephalic, normal inspection - Eye Eye exam: Present: normal appearance - ENT ENT exam: Present: normal exam, normal orophraynx, mucous membranes moist - Neck Neck exam: Present: normal inspection, full ROM. Absent: tenderness, meningismus, lymphadenopathy, thyromegaly - Respiratory Respiratory exam: Present: normal lung sounds bilaterally. Absent: respiratory distress, wheezes, rales, rhonchi, stridor, chest wall tenderness, accessory muscle use, decreased breath sounds, prolonged expiratory - Cardiovascular Cardiovascular Exam: Present: regular rate, normal rhythm, normal heart sounds - GI/Abdominal GI/Abdominal exam: Present: soft, normal bowel sounds. Absent: distended, tenderness, guarding, rebound, rigid, organomegaly, mass, bruit, pulsatile mass, hernia - Extremities Exam Extremities exam: Present: normal inspection, full ROM, normal capillary refill. Absent: tenderness, pedal edema, calf tenderness - Back Exam Back exam: Present: normal inspection, full ROM. Absent: CVA tenderness (R), CVA tenderness (L), muscle spasm, paraspinal tenderness, vertebral tenderness - Neurological Exam Neurological exam: Present: alert, oriented X3, CN II-XII intact, normal gait, reflexes normal - Psychiatric Psychiatric exam: Present: normal mood - Skin Skin exam: Present: warm, intact, normal color ED Course Vital Signs 05/09/19 17:45 Temperature 98.4 F Pulse Rate 98 H Respiratory 18 Rate Blood Pressure 140/111 [Right] O2 Sat by Pulse 96 Oximetry ED Medical Decision Making - Lab Data Result diagrams: 05/09/19 18:08 05/09/19 18:08 - Radiology Data Radiology results: report reviewed - Medical Decision Making Patient is 58 years old male with history of hypertension. Patient presented to the ER complaining of cough, runny nose, congestion and generalized body ache for the last 4 days. Patient also complaining of nausea vomiting. Patient denied any chest pain or abdominal pain. No fever or chills. Patient received Zofran 4 mg IM. No vomiting observed. Labs reviewed and is unremarkable. Chest x-ray is unremarkable. Patient given prescription for Zofran and Robitussin advised to follow-up with his primary care physician in the next 2-3 days and to return to the ER if symptoms have not improved. Critical care attestation.: If time is entered above; I have spent that time in minutes in the direct care of this critically ill patient, excluding procedure time. ED Disposition Clinical Impression: Viral syndrome, Cough Disposition: DC-01 TO HOME OR SELFCARE Is pt being admited?: No Condition: Stable Instructions: Viral Syndrome (ED) Referrals: PRIMARY CARE, [Primary Care Provider] - 3-5 Days
[2019-05-09] MEDS ORDERED: ONDANSETRON 4 MG/2 ML INJ IM ONE (20:41)
[2019-05-09 20:57] VITALS: BP 134/100
[2019-05-09 20:57] LABS: Basophils % (Manual) 0 % (0.0-1.8); Eosinophils % (Manual) 0 % (0.0-4.3); Platelet Estimate Consistent w Auto; RBC Morphology Normal; Total Cells Counted 100
== END 2019-05-09 21:11 | disposition home or self-care (01) ==
LOC: ED 16:44
DX: B34.9 Viral infection, unspecified (principal); I10 Essential (primary) hypertension; F17.200 Nicotine dependence, unspecified, uncomplicated; Z79.899 Other long term (current) drug therapy
CPT/HCPCS: 36415; 71046; 80053; 83690; 85007; 85025; 96372; 99283; J2405

== ENCOUNTER 2020-08-24 05:53 | Emergency (ER) | payer MEDICAID | END 2020-08-24 06:05 | disposition left against medical advice (07) | LOC: ED 05:53 ==

== ENCOUNTER 2022-02-24 09:48 | Emergency (ER) | payer MEDICAID ==
[2022-02-24 10:05] VITALS: BP 138/108
--- NOTE | 2022-02-24 15:45 | Emergency Department Report ---
- General Chief complaint: Extremity Injury, Lower Stated complaint: INGROWN TOENAIL Time Seen by Provider: 02/24/22 15:37 Source: patient Mode of arrival: Ambulatory Limitations: No Limitations - History of Present Illness Initial comments: 61 yo comes to ER with ingrown toe nails on left foot. no s/s infection ambulatory wo difficulty Tetanus Up to Date: yes Treatments Prior to Arrival: none - Related Data Previous Rx's Medication Instructions Recorded Last Taken Type Lisinopril/Hydrochlorothiazide 1 tab PO QDAY #30 tablet 02/26/18 Unknown Rx [Zestoretic 10-12.5 mg] Ondansetron [Zofran ODT TAB] 8 mg PO Q12HR #14 tab.rapdis 11/16/18 Unknown Rx Famotidine [Pepcid] 20 mg PO BID #60 tablet 11/17/18 Unknown Rx Albuterol Sulfate [Proair 90 mcg IH Q4HR PRN #2 aer.pow.ba 02/14/19 Unknown Rx Respiclick] Aspirin [Aspirin BABY CHEW TAB] 81 mg PO QDAY #30 tab.chew 02/14/19 Unknown Rx Famotidine [Pepcid] 20 mg PO BID #10 tablet 02/14/19 Unknown Rx Metoclopramide [Reglan] 10 mg PO QID PRN #30 tablet 02/14/19 Unknown Rx levoFLOXacin [Levaquin] 750 mg PO QDAY #10 tablet 02/14/19 Unknown Rx Ondansetron [Zofran Odt] 4 mg PO Q8HR PRN #14 tab.rapdis 05/09/19 Unknown Rx amLODIPine [Norvasc] 5 mg PO DAILY #30 tab 05/09/19 Unknown Rx guaiFENesin/CODEINE [Robitussin AC] 10 ml PO TID PRN #100 ml 05/09/19 Unknown Rx Allergies Allergy/AdvReac Type Severity Reaction Status Date / Time No Known Allergies Allergy Verified 08/24/20 06:00 Abscess Boil HPI - HPI Chief Complaint: Extremity Injury, Lower Stated Complaint: INGROWN TOENAIL Time Seen by Provider: 02/24/22 15:37 Home Medications: Previous Rx's Medication Instructions Recorded Last Taken Type Lisinopril/Hydrochlorothiazide 1 tab PO QDAY #30 tablet 02/26/18 Unknown Rx [Zestoretic 10-12.5 mg] Ondansetron [Zofran ODT TAB] 8 mg PO Q12HR #14 tab.rapdis 11/16/18 Unknown Rx Famotidine [Pepcid] 20 mg PO BID #60 tablet 11/17/18 Unknown Rx Albuterol Sulfate [Proair 90 mcg IH Q4HR PRN #2 aer.pow.ba 02/14/19 Unknown Rx Respiclick] Aspirin [Aspirin BABY CHEW TAB] 81 mg PO QDAY #30 tab.chew 02/14/19 Unknown Rx Famotidine [Pepcid] 20 mg PO BID #10 tablet 02/14/19 Unknown Rx Metoclopramide [Reglan] 10 mg PO QID PRN #30 tablet 02/14/19 Unknown Rx levoFLOXacin [Levaquin] 750 mg PO QDAY #10 tablet 02/14/19 Unknown Rx Ondansetron [Zofran Odt] 4 mg PO Q8HR PRN #14 tab.rapdis 05/09/19 Unknown Rx amLODIPine [Norvasc] 5 mg PO DAILY #30 tab 05/09/19 Unknown Rx guaiFENesin/CODEINE [Robitussin AC] 10 ml PO TID PRN #100 ml 05/09/19 Unknown Rx Allergies/Adverse Reactions: Allergies Allergy/AdvReac Type Severity Reaction Status Date / Time No Known Allergies Allergy Verified 08/24/20 06:00 ED Review of Systems ROS: Stated complaint: INGROWN TOENAIL Other details as noted in HPI ED Past Medical Hx - Past Medical History Hx Hypertension: Yes Hx CVA: No Additional medical history: back pain - Social History Smoking Status: Never Smoker Substance Use Type: None - Medications Home Medications: Home Medications Medication Instructions Recorded Confirmed Last Taken Type Lisinopril/Hydrochlorothiazide 1 tab PO QDAY #30 tablet 02/26/18 Unknown Rx [Zestoretic 10-12.5 mg] Ondansetron [Zofran ODT TAB] 8 mg PO Q12HR #14 tab.rapdis 11/16/18 Unknown Rx Famotidine [Pepcid] 20 mg PO BID #60 tablet 11/17/18 Unknown Rx Albuterol Sulfate [Proair 90 mcg IH Q4HR PRN #2 aer.pow.ba 02/14/19 Unknown Rx Respiclick] Aspirin [Aspirin BABY CHEW TAB] 81 mg PO QDAY #30 tab.chew 02/14/19 Unknown Rx Famotidine [Pepcid] 20 mg PO BID #10 tablet 02/14/19 Unknown Rx Metoclopramide [Reglan] 10 mg PO QID PRN #30 tablet 02/14/19 Unknown Rx levoFLOXacin [Levaquin] 750 mg PO QDAY #10 tablet 02/14/19 Unknown Rx Ondansetron [Zofran Odt] 4 mg PO Q8HR PRN #14 tab.rapdis 05/09/19 Unknown Rx amLODIPine [Norvasc] 5 mg PO DAILY #30 tab 05/09/19 Unknown Rx guaiFENesin/CODEINE [Robitussin AC] 10 ml PO TID PRN #100 ml 05/09/19 Unknown Rx ED Physical Exam - General Limitations: No Limitations General appearance: alert, in no apparent distress - Head Head exam: Present: atraumatic, normocephalic - Eye Eye exam: Present: normal appearance - ENT ENT exam: Present: mucous membranes moist - Neck Neck exam: Present: normal inspection - Respiratory Respiratory exam: Present: normal lung sounds bilaterally. Absent: respiratory distress - Cardiovascular Cardiovascular Exam: Present: regular rate, normal rhythm. Absent: systolic murmur, diastolic murmur, rubs, gallop - GI/Abdominal GI/Abdominal exam: Present: soft, normal bowel sounds - Rectal Rectal exam: Present: deferred - Extremities Exam Extremities exam: Present: normal inspection - Back Exam Back exam: Present: normal inspection - Neurological Exam Neurological exam: Present: alert, oriented X3 - Psychiatric Psychiatric exam: Present: normal affect, normal mood - Skin Skin exam: Present: warm, dry, intact, normal color, other (ingrown toe nails of left foot). Absent: rash ED Course Vital Signs 02/24/22 10:02 Temperature 98.6 F Pulse Rate 69 Respiratory 16 Rate Blood Pressure 138/108 [Right] O2 Sat by Pulse 97 Oximetry ED Medical Decision Making - Medical Decision Making Vital Signs 02/24/22 10:02 Temperature 98.6 F Pulse Rate 69 Respiratory 16 Rate Blood Pressure 138/108 [Right] O2 Sat by Pulse 97 Oximetry discussed follow up with podiatry for his toe nail concerns he verbalizes understanding of plan of care - Differential Diagnosis ingrown toe nail Critical care attestation.: If time is entered above; I have spent that time in minutes in the direct care of this critically ill patient, excluding procedure time. ED Disposition Clinical Impression: Ingrown toenail Disposition: 01 HOME / SELF CARE / HOMELESS Is pt being admited?: No Does the pt Need Aspirin: No Condition: Stable Instructions: Ingrown Toenail Additional Instructions: follow up with foot doctor as discussed referral below Referrals: BEATA DE LUNA MD [Staff Physician] - 3-5 Days DUANE VARNER DPM [Staff Physician] - 3-5 Days Time of Disposition: 15:44
== END 2022-02-24 16:02 | disposition home or self-care (01) ==
LOC: ED 09:48
DX: L60.0 Ingrowing nail (principal); I10 Essential (primary) hypertension; Z79.899 Other long term (current) drug therapy; Z79.82 Long term (current) use of aspirin
CPT/HCPCS: 99282